=== PATIENT | female | born 1960 | race Caucasian/White ===

== ENCOUNTER → 2016-10-15 | Outpatient (CLI) | payer OTHER ==
--- NOTE | 2016-10-15 10:56 | DIAGNOSTIC IMAGING REPORT ---
PROCEDURE: US SOFT TISSUE THYR/NECK/HEAD INDICATION: ENLARGED LYMPH NODE IN NECK TECHNIQUE: Botello scale and color Doppler sonographic images of the thyroid gland were obtained. COMPARISON: None available FINDINGS: The submandibular gland on the right measures 3.25 cm. On the left that measures 3 cm. Multiple less than 1 cm lymph nodes are seen around both submandibular glands. The lymph nodes have a normal appearance. No significant adenopathy adjacent to the gland. IMPRESSION: 1. Normal lymph nodes surrounding the submandibular glands bilaterally.
== END ==
LOC: US SRH 09:51
DX: R59.0 Localized enlarged lymph nodes (principal)